=== PATIENT | female | born 1945 | race Caucasian/White ===

== ENCOUNTER 2016-12-28 09:06 | Day surgery (SDC) | payer MEDICARE, BC ==
--- NOTE | 2016-12-28 08:10 | HP ---
DATE OF SURGERY: 12/28/2016 HISTORY OF PRESENT ILLNESS: The patient is a 71 year-old had port placed a few years ago, had some redness around. No treatment would work with Remicade. She is in need for new port and for removal of old one for longterm rheumatoid arthritis treatments. PAST MEDICAL HISTORY: Rheumatoid arthritis. PAST SURGICAL HISTORY: Port placed in the past. Carpal tunnel and section in the past. MEDICATIONS: Remicade, folic acid, Methotrexate, hydrochlorothiazide, Alendronate, Montelukast, fluconazole spray, Zantac, Lisa aspirin, calcium citrate, vitamin D, multivitamins, vitamin D3, Zyrtec, potassium, pantoprazole, gabapentin, nabumetone, Tylenol as needed, Tramadol as needed. ALLERGIES: MIRANDA, CASHEW, PIZZA, TETANUS SHOT, PENICILLIN, TIGAN. FAMILY HISTORY: Negative in regards to this problem. SOCIAL HISTORY: No smoking or alcohol abuse. REVIEW OF SYSTEMS: Twelve systems reviewed per admission assessment. No chest pain or palpitations other systems negative or noncontributory as above and per preadmission questionnaire. PHYSICAL EXAMINATION: GENERAL: No acute distress. HEENT: Sclerae nonicteric. NECK: No JVD. CHEST: Equal excursion, nonlabored breathing. Port site appears okay at the moment. CVS: Regular rate and rhythm. ABDOMEN: Soft. EXTREMITIES: No significant edema. She does have rheumatoid arthritis changes. NEURO: Alert, moving extremities symmetrically. IMPRESSION: Old Port-A-Cath that had been in for years not functioning well enough to do arthritis treatment, needs removal and placement of a new port. Risks and benefits explained in detail including but not limited to bleeding or infection, small risk of pneumothorax or thrombosis, risk of Port-A-Cath fracture or failure possibly requiring removal or replacement, risk if the port became infected likely need to be removed, general risk of aches, pains, burning or numbness, risk of hematoma or seroma formation, small risk of tear, injury or venous issues, tear or injury, risk of bleeding but not limited to. She understands and agrees to the planned procedure and will proceed with outpatient removal of old exhausted Port-A-Cath and placement of new Port-A-Cath as an outpatient.
[~2016-12-28 09:06] MED LIST: DIPRIVAN 200 MG/20 ML IV ONE; Lactated Ringers 1,000 ML IV ONE; Lactated Ringers 1,000 ML IV SCH; Levofloxacin 500MG/100ML D5W 500 MG/100 ML BAG IV ONE; Levofloxacin 500MG/100ML D5W 500 MG/100 ML BAG IV STA; XYLOCAINE 1% HCL 20 ML MDV ONE
[2016-12-28 09:53] LABS: ANION GAP 13.2 MEQ/L (5-15); Potassium 3.8 mEq/L (3.5-5.1)
[2016-12-28] MEDS ORDERED: Versed 2 MG/2 ML Injection IV ONE (10:30)
[2016-12-28] MEDS ORDERED: SUBLIMAZE 250 MCG/5 ML IV ONE (10:30)
--- NOTE | 2016-12-28 13:20 | OP ---
SURGERY DATE/TIME: 12/28/2016 1015 PREOPERATIVE DIAGNOSIS: History of arthritis now in need of removal of nonfunctioning Port-A-Cath and replacement with need for senior care access for IV arthritis Remicade treatments. POSTOPERATIVE DIAGNOSIS: History of arthritis now in need of removal of nonfunctioning Port-A-Cath and replacement with need for senior care access for IV arthritis Remicade treatments. PROCEDURES: 1) Placement of new Port-A-Cath with C-arm fluoroscopy left subclavian vein. 2) Removal of old right subclavian tunnel Port-A-Cath. SURGEON: Dr. Thierno Lnua. ANESTHESIA: MAC. ESTIMATED BLOOD LOSS: Minimal. INDICATIONS: As noted above. Risks and benefits explained in detail and not limited to and consent obtained. DESCRIPTION OF PROCEDURE AND FINDINGS: The patient is taken to the operating room. MAC anesthesia induced. After official time out and no disagreement with planned procedure in Trendelenburg position neck and chest had been prepped and draped in usual sterile fashion. After official time out and no disagreement with planned procedure, 1% lidocaine local was infiltrated in left subclavicular area. 18 gauge cannulation needle inserted on first pass. Good dark nonpulsatile venous return. Guide wire passed without difficulty confirmed down the superior vena cava by C-arm fluoroscopy. This was followed by anesthetizing the tunnel track and port pocket. A transverse incision made inferior subcu. Port pocket created with the aid of cautery. Port secured to the chest wall with Prolene sutures x2. Catheter tunneled down to the port pocket. The dilator break away sheath easily fed over the guide wire. Catheter fed down break away sheath. The tip was pulled back to the right atrial area on C-arm fluoroscopy near the top part of the atrial area. Superior vena cava area this is placed deeper as it looked like whatever activity she had done she pulled her catheter back on the right side. This catheter was in the very proximal superior vena cava subclavian area. It was felt it would be safest to go ahead and have this slightly deeper on top of the right atrial distal superior vena cava so the weight of the breast or any other activity hopefully would not pull this catheter out any further. The catheter tip is in good location. Lung pantoja noted to be up bilaterally. Catheter snapped on the port with the hub. It aspirated dark nonpulsatile venous return with ease. Flushed with heparinized saline with ease. Again lung pantoja noted to be up bilaterally. It was felt that no further x-rays were necessary at this point. Good hemostasis noted. Subcu closed with 3-0 Vicryl. Skin closed with 4-0 Vicryl. Cannulation stab wounds closed with 4-0 Vicryl. Steri-Strips and sterile dressings applied. 0.25% Marcaine local injected. The old port site along the opposite chest/right chest. Transverse incision made. Dissection carried down. Two Prolene sutures removed. The catheter is carefully mobilized up out of the pocket, pulled free and passed off. Tunnel track closed with 3-0 Vicryl. Subcu closed with 3-0 Vicryl. Skin closed with 4-0 Vicryl. Steri-Strips and sterile dressing applied. The patient tolerated the procedure well. There were no immediate complications. Findings discussed with the family out in the waiting area.
[2016-12-28 13:48] VITALS: O2SAT 97
[2016-12-28 13:58] VITALS: BP 127/82; PULSE 72
--- NOTE | 2016-12-30 16:09 | XRAY ---
Indication: Left sided port placement. Intraoperative fluoroscopy was provided for 2 seconds. Single digital spot image submitted for interpretation demonstrates partially visualized left-sided Port-A-Cath with the tip projecting over the SVC. Also a right-sided Port-A-Cath with the tip projecting over the right brachiocephalic vein. Correlate with intraoperative findings/report.
== END 2016-12-28 13:30 | disposition home or self-care (01) ==
LOC: SDC 09:06
PROVIDERS: ATTEND Surgery
PROC: 05PY03Z Removal of Infusion Device from Upper Vein, Open Approach (ICD-10-PCS; principal; 2016-12-28)
PROC: 05H633Z Insertion of Infusion Device into Left Subclavian Vein, Percutaneous Approach (ICD-10-PCS; 2016-12-28)
DX: Z45.2 Encounter for adjustment and management of vascular access device (principal); M06.9 Rheumatoid arthritis, unspecified; Z79.899 Other long term (current) drug therapy
CPT/HCPCS: 00400; 00532; 36415; 77001; 80048; 99100; C1788; J1642; J1956; J2250; J2704; J3010